=== PATIENT | male | born 1995 | race Hispanic/Latino ===

== ENCOUNTER 2017-01-22 14:10 | Emergency (ER) | payer SELFPAY ==
[2017-01-22 15:04] LABS: #Lymphocytes 1.1 thou/uL (1.20-3.40); #Monocytes 0.4 thou/uL (0.11-0.59); #Neutrophils 7.9 thou/uL (1.40-6.50); %Basophils 0.5 % (0.0-1.0); %Eosinophils 0.1 % (0.0-10.0); %Lymphocytes 11.3 % (28.0-48.0); %Monocytes 3.8 % (0.0-4.0); Hematocrit 46.4 % (42.0-52.0); Mean Platelet Volume 7.9 fL (7.4-10.4); Red Blood Cell (RBC) Count 5.09 mill/uL (4.00-5.20); White Blood Cell (WBC) Count 9.4 thou/uL (4.8-10.8)
--- NOTE | 2017-01-22 15:08 | RAD ---
PORTABLE CHEST: Date: 01/22/17 HISTORY: Chest pain. FINDINGS: Heart size and mediastinum are within normal limits. Lungs are clear of infiltrates. No significant bony findings. IMPRESSION: No active intrathoracic disease. POS: [facility]
[2017-01-22 15:27] LABS: ALT (SGPT) 23 U/L (8-55); AST (SGOT) 17 U/L (10-45); Alkaline Phosphatase 79 U/L (Less than 750); Anion Gap 15 mmol/L (10-20); BUN (Urea Nitrogen) 14 mg/dL (8.4-21.0); Bilirubin, Total 1.3 mg/dL (0.2-1.2); CK (CPK) 89 U/L (30-200); Calc. Creatinine Clearance 0 mL/min (70-130); Calcium 9.8 mg/dL (7.8-10.44); Carbon Dioxide 24 mmol/L (22-29); Chloride 101 mmol/L (98-107); Estimated GFR-MDRD Greater than 90; Globulin 3.4 g/dL (2.4-3.5); Lipase 16 U/L (8-78); Protein, Total 8.3 g/dL (6.0-8.3)
== END 2017-01-22 15:33 | disposition home or self-care (01) ==
LOC: ERS 14:10
DX: E86.0 Dehydration (principal); F41.9 Anxiety disorder, unspecified
CPT/HCPCS: 36415; 71010; 80053; 82550; 83690; 85025; 93005

== ENCOUNTER 2018-05-08 20:45 | Emergency (ER) | payer OTHER, SELFPAY ==
[~2018-05-08 20:45] MED LIST: Iopamidol 370 76% 100 ML VIAL ONE
[2018-05-08 22:21] LABS: #Eosinphils 0.1 thou/uL (0.0-0.7); #Lymphocytes 1.7 thou/uL (1.20-3.40); #Monocytes 0.8 thou/uL (0.11-0.59); #Neutrophils 5.8 thou/uL (1.40-6.50); %Basophils 0.5 % (0.0-1.0); %Eosinophils 0.7 % (0.0-10.0); %Lymphocytes 20.5 % (28.0-48.0); %Monocytes 9.4 % (0.0-4.0); %Neutrophils 68.8 % (31.0-61.0); Hemoglobin 14.8 g/dL (14.0-18.0); Mean Corpuscular HGB CONC 34.6 g/dL (32.0-36.0); Mean Corpuscular Hemoglobin 31.2 pg (25.0-35.0); Mean Corpuscular Volume 90.2 fL (78.0-98.0); Mean Platelet Volume 7.8 fL (7.4-10.4); Platelet Count 189 thou/uL (130-400); RBC Distribution Width 11.6 % (11.5-14.5); Red Blood Cell (RBC) Count 4.75 mill/uL (4.00-5.20); White Blood Cell (WBC) Count 8.4 thou/uL (4.8-10.8)
[2018-05-08 22:35] LABS: Bilirubin Negative (Negative); Blood, Urine Negative (Negative); Clarity CLEAR (Clear); Glucose, Urine (Dipstick) 100 mg/dL (Negative); Leukocyte Negative (Negative); Nitrite Negative (Negative); Protein, Urine (Dipstick) Negative (Neg-Trace); Specific Gravity, Urine 1.008 (1.002-1.036); pH, Urine 6.5 (5.0-9.0)
[2018-05-08 22:43] LABS: Amphetamine Not Detected (NotDetected); Barbiturates Screen Not Detected (NotDetected); Benzodiazepine Screen Not Detected (NotDetected); Cocaine Metabolite Screen Not Detected (NotDetected); Medtox Control Line Valid? VALID (VALID); Medtox Reader # READER 1; Methadone Not Detected (NotDetected); Methamphetamine Not Detected (NotDetected); Opiate Screen Not Detected (NotDetected); Oxycodone Screen Not Detected (NotDetected); Phencyclidine (PCP) Not Detected (NotDetected); THC/Cannabinoid Screen Not Detected (NotDetected); Tricyclic Screen Not Detected (NotDetected)
[2018-05-08 22:44] LABS: ALT (SGPT) 31 U/L (8-55); AST (SGOT) 19 U/L (5-34); Albumin 4.6 g/dL (3.5-5.0); Alkaline Phosphatase 73 U/L (Less than 750); Anion Gap 15 mmol/L (10-20); BUN (Urea Nitrogen) 13 mg/dL (8.9-20.6); Bilirubin, Total 0.4 mg/dL (0.2-1.2); CK (CPK) 92 U/L (30-200); Calc. Creatinine Clearance 0 mL/min (70-130); Calcium 9.3 mg/dL (7.8-10.44); Carbon Dioxide 23 mmol/L (22-29); Chloride 107 mmol/L (98-107); Estimated GFR-MDRD Greater than 90; Globulin 2.9 g/dL (2.4-3.5); Glucose 137 mg/dL (70-105); Lipase 42 U/L (8-78); Potassium 3.5 mmol/L (3.5-5.1); Protein, Total 7.5 g/dL (6.0-8.3); Sodium 141 mmol/L (136-145)
--- NOTE | 2018-05-08 22:51 | RAD ---
CHEST ONE VIEW: History: Shortness of breath, pain on inspiration, dizziness and numbness. Hyperventilation. FINDINGS: Heart size is normal. The lungs are clear. No pneumonia, edema, pleural effusion or other acute proce ss. IMPRESSION: No acute intrathoracic disease. POS: [facility]
[2018-05-08] MEDS ORDERED: Ketorolac Tromethamine 30 MG/ML VIAL ONE (22:56)
[2018-05-08 23:16] LABS: MONO NEGATIVE CONTROL ZONE White (Negative) (White); MONO POSITIVE CONTROL Pink Line (Positive) (PINK/RED); Mononucleosis NEGATIVE (NEGATIVE)
--- NOTE | 2018-05-08 23:48 | CT ---
CT ANGIOGRAM CHEST WITH 3D RENDERING CT ANGIOGRAM ABDOMEN WITH 3D RENDERING: History: Chest pain, abdominal pain, shortness of breath, dizziness, extremity paraesthesia. FINDINGS: CT ANGIOGRAM CHEST WITH 3D RENDERING: No evidence for aortic dissection or aneurysm. No evidence for central artery pulmonary artery thromb osis. No significant acute process in the lungs. No pleural effusion or pericardial effusion. Mediast inum is unremarkable. CT ANGIOGRAM ABDOMEN WITH 3D RENDERING: Normal appearing abdominal aorta. No evidence of dissection or aneurysm. The visualized liver, pancre as, spleen, adrenal glands, and kidneys are unremarkable. Celiac artery, superior mesenteric artery, inferior mesenteric artery and renal arteries appear unremarkable. No abnormal fluid collection withi n the abdomen. IMPRESSION: Normal chest CT angiogram and abdomen CT angiogram. POS: [facility]
[2018-05-08] MEDS ORDERED: Lorazepam 2 MG/ML VIAL ONE (23:56)
== END 2018-05-09 00:58 | disposition home or self-care (01) ==
LOC: ERS 20:45
DX: R07.89 Other chest pain (principal); R00.0 Tachycardia, unspecified; Z87.891 Personal history of nicotine dependence
CPT/HCPCS: 36415; 71045; 71275; 80053; 80306; 81003; 82550; 83690; 83735; 84439; 84484; 85025; 85379; 86308; 87081; 87430; 87804; 93005; 96361; 96374; 96375; J1885; J2060

== ENCOUNTER 2018-12-26 17:54 | Inpatient (IN) | payer SELFPAY ==
[2018-12-26] MEDS ORDERED: Adenosine 6 MG/2 ML VIAL ONE ×2 (18:07→18:17)
[2018-12-26 18:15] LABS: #Basophils 0.1 thou/uL (0.0-0.2); #Lymphocytes 3.2 thou/uL (1.20-3.40); #Monocytes 1.7 thou/uL (0.11-0.59); #Neutrophils 14.4 thou/uL (1.40-6.50); %Basophils 0.3 % (0.0-1.0); %Eosinophils 0.2 % (0.0-10.0); %Lymphocytes 16.4 % (21.0-51.0); %Monocytes 8.6 % (0.0-10.0); %Neutrophils 74.5 % (42.0-75.0); Hemoglobin 15.1 g/dL (14.0-18.0); Mean Corpuscular HGB CONC 34.5 g/dL (32.0-36.0); Mean Corpuscular Hemoglobin 31.4 pg (27.0-31.0); Mean Corpuscular Volume 91.1 fL (78.0-98.0); Mean Platelet Volume 8.5 fL (7.4-10.4); Platelet Count 256 thou/uL (130-400); RBC Distribution Width 11.9 % (11.5-14.5); White Blood Cell (WBC) Count 19.3 thou/uL (4.8-10.8)
[2018-12-26] MEDS ORDERED: Fentanyl 100 MCG/2 ML VIAL ONE (18:20)
[2018-12-26] MEDS ORDERED: Midazolam HCl 2 mg/2 ml Vial ONE (18:20)
[2018-12-26 18:36] LABS: ALT (SGPT) 19 U/L (8-55); AST (SGOT) 19 U/L (5-34); Albumin 4.8 g/dL (3.5-5.0); Alkaline Phosphatase 84 U/L (40-150); Anion Gap 15 mmol/L (10-20); BUN (Urea Nitrogen) 12 mg/dL (8.9-20.6); Bilirubin, Total 0.5 mg/dL (0.2-1.2); CK (CPK) 96 U/L (30-200); Calc. Creatinine Clearance 0 mL/min (70-130); Calcium 9.4 mg/dL (7.8-10.44); Carbon Dioxide 23 mmol/L (22-29); Chloride 100 mmol/L (98-107); Estimated GFR-MDRD Greater than 90; Glucose 252 mg/dL (70-105); Lipase 29 U/L (8-78); Protein, Total 7.8 g/dL (6.0-8.3); Sodium 135 mmol/L (136-145)
[2018-12-26 18:45] LABS: Potassium 2.7 mmol/L (3.5-5.1)
[2018-12-26] MEDS ORDERED: Potassium Chloride 20 MEQ TAB ONE (19:24)
[2018-12-26 19:38] LABS: Amphetamine Not Detected (NotDetected); Barbiturates Screen Not Detected (NotDetected); Benzodiazepine Screen Not Detected (NotDetected); Cocaine Metabolite Screen Not Detected (NotDetected); Medtox Control Line Valid? VALID (VALID); Medtox Reader # READER 1; Methadone Not Detected (NotDetected); Methamphetamine Not Detected (NotDetected); Opiate Screen Not Detected (NotDetected); Oxycodone Screen Not Detected (NotDetected); Phencyclidine (PCP) Not Detected (NotDetected); THC/Cannabinoid Screen Detected (NotDetected); Tricyclic Screen Not Detected (NotDetected)
--- NOTE | 2018-12-26 19:52 | RAD ---
CHEST ONE VIEW PORTABLE: History: Weakness. Comparison: 05-08-18 FINDINGS: Heart size within normal limits. The lungs are clear. No pneumonia, edema, pleural effusion or other acute process. IMPRESSION: No acute intrathoracic disease. POS: [facility]
[2018-12-26 20:05] LABS: Troponin I Less than 0.010 ng/mL (< 0.028)
[2018-12-26] MEDS ORDERED: Magnesium 2 GM/50 ML BAG (IN WATER) ONE (20:22)
[2018-12-26 21:31] LABS: Troponin I 0.014 ng/mL (< 0.028)
[2018-12-26] MEDS ORDERED: Acetaminophen 325 MG TAB PO PRN (23:16)
[2018-12-26] MEDS ORDERED: Ondansetron PF 4 MG/2 ML Vial IVP PRN (23:16)
[2018-12-26] MEDS ORDERED: Acetaminophen 650 MG Suppository PR PRN (23:16)
[2018-12-26] MEDS ORDERED: Ondansetron ODT 4 MG TAB PO PRN (23:16)
[2018-12-26] MEDS ORDERED: Potassium Chloride 20 MEQ TAB PO SCH (23:30)
[2018-12-26 23:56] LABS: Lactic Acid 0.9 mmol/L (0.5-2.2)
[2018-12-27 03:01] LABS: #Lymphocytes 1.6 thou/uL (1.20-3.40); #Neutrophils 5.4 thou/uL (1.40-6.50); %Basophils 0.2 % (0.0-1.0); %Eosinophils 0.2 % (0.0-10.0); %Lymphocytes 19.9 % (21.0-51.0); %Monocytes 12.6 % (0.0-10.0); Hemoglobin 13.6 g/dL (14.0-18.0); Mean Corpuscular HGB CONC 34.1 g/dL (32.0-36.0); Mean Corpuscular Hemoglobin 31.3 pg (27.0-31.0); Mean Corpuscular Volume 91.8 fL (78.0-98.0); Mean Platelet Volume 8.3 fL (7.4-10.4); Platelet Count 168 thou/uL (130-400); RBC Distribution Width 11.8 % (11.5-14.5); Red Blood Cell (RBC) Count 4.35 mill/uL (4.70-6.10); White Blood Cell (WBC) Count 8.1 thou/uL (4.8-10.8)
[2018-12-27 03:10] LABS: Anion Gap 10 mmol/L (10-20); BUN (Urea Nitrogen) 7 mg/dL (8.9-20.6); Calc. Creatinine Clearance 0 mL/min (70-130); Calcium 9.1 mg/dL (7.8-10.44); Carbon Dioxide 22 mmol/L (22-29); Chloride 110 mmol/L (98-107); Estimated GFR-MDRD Greater than 90; Glucose 102 mg/dL (70-105); Potassium 3.6 mmol/L (3.5-5.1); Sodium 138 mmol/L (136-145)
--- NOTE | 2018-12-27 07:25 | HP ---
PRIMARY CARE DOCTOR: The patient has no PCP. CODE STATUS: Full code. TIME OF EVALUATION: 11 p.m. CHIEF COMPLAINT: "My heart is racing, feeling lightheaded." HISTORY OF PRESENT ILLNESS: A 23 years old male patient, with past medical history of palpitations in the past with no clear diagnosis, came to the hospital after having another episode of palpitation where he had these symptoms. He was lightheaded. The onset was 30 minutes prior to arrival to the hospital, was around 5 p.m. with no clear triggers, no alleviating factors. The patient was watching TV. The patient denies any alcohol, no tobacco and drugs. The patient reported that his mom at a young age, supposedly related to kidney problems, he does not recall, he was very little. The symptoms started suddenly and improved after treatment with Cardizem. REVIEW OF SYSTEMS: All other systems were reviewed and negative except for the findings mentioned above. PAST MEDICAL HISTORY: Positive for previous history and episode of palpitations. PAST SURGICAL HISTORY: No surgical history. PSYCHIATRIC HISTORY: No previous psych history. SOCIAL HISTORY: No alcohol, no drugs. The patient abuse marijuana. Former tobacco smoker. Lives at home with family. KNOWN ALLERGIES: No known drug allergies. FAMILY HISTORY: Reviewed and noncontributory to current presentation. REPORTED MEDICATIONS: None. PHYSICAL EXAMINATION: VITAL SIGNS: On presentation, blood pressure is 148/69 with heart rate 166, temperature 97.5, oxygen saturation 97% on room air. GENERAL APPEARANCE: The patient is alert, oriented, no acute distress. HEENT: Eyes, normal conjunctivae. Moist oral mucosa. Anicteric. No JVD. RESPIRATORY: Bilateral air entry. No rales. No wheezes. Symmetric expansion. CARDIOVASCULAR: Normal rate, regular rhythm, no murmurs, no gallop, no edema. ABDOMEN: Soft. Normal bowel sounds. MUSCULOSKELETAL: Baseline range of motion and strength. SKIN: Warm and intact. No pallor, no rash, no redness. Capillary refill seems to be intact. NEURO: No evidence of any new focal weakness. Cranial nerves seems to be intact. PSYCH: The patient is in good mood. No anxiety. Optimal judgment. IMAGING STUDIES: EKG was reviewed. The patient has sinus tachycardia at the rate of 116 with incomplete RBBB. The 2nd EKG on record showed PSVT at the rate of [address] dissection was done. The patient had normal chest CT angiogram and abdomen. Chest x-ray was done and showed no acute intrathoracic disease. LABORATORY DATA: Reviewed. The patient on presentation, white count 19.3, the second one was 8.1; hemoglobin 15. The chemistry was reviewed, the patient's lactic acid was normal. Sodium 135, potassium 2.7, chloride 100, carbon dioxide 23, anion gap 15, BUN 12, creatinine 0.94, GFR greater than 90. Glucose on presentation was 282, the repeat one was 102. TSH 0.3. LFTs were negative. Troponin was negative. ASSESSMENT AND PLAN: The patient will be placed in the hospital with following medical problems. 1. Paroxysmal supraventricular tachycardia, acute episodes, unclear etiology. The patient had recent episodes a couple of months ago with the same presentation. The patient will need Cardiology consult. The patient improved with Cardizem drip. We will continue p.r.n. as needed. By the time of my examination, heart rate has come down to normal. Continue to monitor closely. We will replace electrolytes. We will do an echo in the morning. 2. Deep venous thrombosis prophylaxis. 3. Hypokalemia, potassium 2.7. After replacing, the last one is 3.6. 4. Leukocytosis likely due to acute physical distress. The second white count is 8.1-normal. 5. Hyponatremia, sodium 135, this is minimal. This has corrected by the second labs. 6. Hyperglycemia, likely secondary to acute physical distress. Second blood sugar in the morning was 102. We will monitor. 7. Cannabinoid abuse, more likely related to acute symptoms. He denies any other drug abuse. recommended to stop using marijuana 8. There is a possibility for subclinical hyperthyroidism. The patient has low TSH and normal T3, T4, presenting with arrhythmia. No other significant symptoms. This is something that could be monitored. The patient might have further workup for this reason. Job ID: [id number] [facility]
[2018-12-27] MEDS ORDERED: Enoxaparin Sodium 40 MG/0.4 ML SYRINGE SC SCH (09:00)
[2018-12-27] MEDS ORDERED: Enoxaparin Sodium 40 MG/0.4 ML SYRINGE ONE (10:00)
--- NOTE | 2018-12-27 14:31 | CON ---
DATE OF CONSULTATION: HISTORY OF PRESENT ILLNESS: Santana An is a 23-year-old male , admitted with tachycardia. He states he had one episode approximately 3 years ago where he felt his heart beating very rapidly for approximately 5 minutes and then it spontaneously resolved. He denies any recurrence since that time. He then approximately at 1730 hours yesterday afternoon started feeling his heart beating very rapidly. This occurred while he was sitting and watching TV. He denied any chest discomfort, but did feel extreme palpitations and felt weak and dizzy. When he arrived here , his blood pressure was 163/75, pulse of 163/minute. In the emergency room, he underwent emergency cardioversion, which did not convert him. He was given fentanyl and Versed, and again, cardioversion was unsuccessful. He was then given intravenous adenosine, and apparently, blocked down and converted to sinus rhythm. In looking at the rhythm strips, there is one rhythm strip where he appears to block down and there are P-waves and certainly maybe sinus tachycardia. At the present time, the patient denies any symptoms. PAST MEDICAL HISTORY: No history of hypertension, diabetes, or hypercholesterolemia. MEDICATIONS: None. ALLERGIES: NONE. PAST SURGICAL HISTORY: None. SOCIAL HISTORY: He smoked in the past, where he states stopped smoking marijuana 1 month ago, but his urine screen is positive. He does not drink. FAMILY HISTORY: Negative for coronary artery disease. REVIEW OF SYSTEMS: Twelve-point review of systems unremarkable. PHYSICAL EXAMINATION: VITAL SIGNS: Blood pressure of 114/56, pulse of 98. HEENT: PERRL. NECK: Supple. CHEST: Clear. CARDIAC: S1 and S2 normal without any S3, S4, or murmurs. ABDOMEN: Normal bowel sounds without tenderness or organomegaly. EXTREMITIES: Revealed no clubbing, cyanosis, or edema. NEUROLOGIC: Grossly intact. SKIN: Warm and dry. IMAGING STUDIES: EKG reveals sinus tachycardia versus supraventricular tachycardia with incomplete right bundle-branch block. LABORATORY DATA: Hemoglobin 13.6, hematocrit 39.9, white count 8100. Sodium 138, potassium 3.6, chloride 110, carbon dioxide 22, BUN 7, creatinine 0.66. Troponin I is unremarkable. Magnesium is normal. Potassium initially was 2.7. TSH somewhat low at 0.2258; however, free T4 is normal. Drug screen was unremarkable, except for cannabinoids. IMPRESSION: 1. Supraventricular tachycardia versus sinus tachycardia. With adenosine, there was atrioventricular block with P-waves present at approximately 140 to 150. The P- wave morphology seems similar to P-wave morphology when he is in normal sinus rhythm. 2. Cannabinoid use. PLAN: Echocardiogram will be performed. Electrophysiology consultation will be requested. We will follow the patient with you. Job ID: [id number] [facility]
--- NOTE | 2018-12-27 17:43 | CON ---
DATE OF CONSULTATION: 12/27/2018 HISTORY OF PRESENT ILLNESS: I am seeing Mr. 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 His problems are: 1. Rapid palpitations. a. EKG suggestive of 1:1 sinus, less likely atrial tachycardia with P-wave morphology similar to baseline sinus. b. Adenosine produces AV block, but does not terminate the arrhythmia. Cardioversion unsuccessful. c. Good response to IV diltiazem. 2. Depressed TSH and elevated white cell count on admission. 3. History of marijuana use. ALLERGIES: NONE NOTED. MEDICATIONS: Medications at home: None. SUBJECTIVE: Mr. An has been experiencing palpitations since last night. He was having some anxiety, lightheadedness about 30 minutes prior to arriving to hospital about 5 p.m. There are no obvious triggers or alleviating factors. This happened while he was watching TV, but he did notice some anxiety coming on him. The anxiety was though unprovoked. He has no PND, orthopnea, or lower extremity edema. No angina-like discomfort. No stroke-like symptoms. Denies fever, chills, cough, or burning urination. No dizziness or loss of consciousness. Has not used any recent drugs, although has quit marijuana smoking about a month ago. REVIEW OF SYSTEMS: Rest of 12-point review of systems is otherwise unremarkable. PAST MEDICAL HISTORY: As above. SOCIAL HISTORY: The patient denies smoking, EtOH, or drug abuse. FAMILY HISTORY: Not contributory. OBJECTIVE DATA: VITAL SIGNS: Initially, blood pressure is 142/65, heart rate 148, respirations 12. The patient is afebrile. PHYSICAL EXAMINATION: GENERAL: Alert and oriented man, in no apparent distress. NECK: Supple. Jugular veins not distended. CHEST: Coarse without crackles. HEART: Sounds are regular to rate and rhythm. No murmur or gallop. ABDOMEN: Benign. Bowel sounds are positive. EXTREMITIES: Lower extremities without edema, clubbing, or cyanosis. Pulses are adequate. NEUROLOGIC: The patient is nonfocal. MUSCULOSKELETAL: Without joint swelling or deformity. SKIN: Without rash. DATABASE: The EKG is reviewed. Initial EKG reveals a long RP, short NM type of narrow complex tachycardia with P-wave morphology consistent with the sinus P waves on the later EKGs. The documented adenosine administration causes complete AV block with P waves continue undisturbed and later a 2:1 AV conduction ensued, but 1:1 conduction also resumed. Eventually, IV diltiazem has controlled the patient's tachycardia. LABORATORY DATA: White cell count last night 19.3, this morning 8.1; hemoglobin 15.1; platelet count is 256. Sodium 138, potassium 3.6, BUN is 7, creatinine 0.66. AST and ALT are normal. Troponins are 0.014 and 0.01. TSH is abnormal at 0.2258 with free T4 at normal range of 1.05. The chest x-ray shows no acute intrathoracic disease. This morning, EKG reveals sinus rhythm, rate of 88 beats per minute. ASSESSMENT AND PLAN: Mr. An is a pleasant 23-year-old young man with prior history of palpitation, some anxiety, who has presented with rapid narrow complex tachycardia with P waves consistent with sinus origin. Also, cardioversion and adenosine did not convert him out of this rhythm, although transient atrioventricular block was achieved with adenosine. Eventually, IV diltiazem has slowed down his heart rates, that was stopped overnight, and he remains in normal rhythm today. Workup so far is not clearly revealing, although initial white cell count elevation is seen. There are no obvious signs or symptoms of infection present. As white cell count normalized, sepsis would be rather unlikely at this time. He has mildly reduced TSH, but normal free T4. I doubt significant hypothyroidism. Moderate hypokalemia is seen initially at 2.7, but normalized this morning. My diagnosis is sinus tachycardia at this point, unclear reason. Most likely anxiety-induced, would be less likely a focal atrial tachycardia very close to the sinus node giving P waves very similar in morphology. He seems to be responding well to diltiazem. We might be able to discharge him on p.o. short-acting diltiazem 60 mg 3 times a day, which could be reduced and possibly taking on an as-needed basis. Should the palpitations recur, outpatient monitoring might be a consideration. EP study and ablation would be likely held off at this point unless if more doubt of focal atrial tachycardia is present. Normalize electrolytes; if necessary, thyroid levels as well is advised. I am happy to see this gentleman back as an outpatient. Thank you again for allowing me to participate in the care of this patient. Job ID: [id number] [facility]
--- NOTE | 2018-12-28 08:43 | DIS ---
DATE OF ADMISSION: 12/26/2018 DATE OF DISCHARGE: 12/27/2018 ADMISSION DIAGNOSES: 1. Supraventricular tachycardia. 2. Marijuana abuse. DISCHARGE DIAGNOSES: 1. Supraventricular tachycardia. 2. Marijuana abuse. HISTORY OF PRESENTING ILLNESS: This is a 23-year-old male who came in with a history of rapid heart rate with palpitations and chest discomfort. The patient was found to be in SVT and was treated with IV diltiazem. The patient's toxicology screen showed he was positive for marijuana. The patient responded to IV diltiazem, and manager primary who saw the patient, instructed to keep the patient on p.o. Cardizem on a p.r.n. basis for the heart rate of more than 100. The patient was then discharged with a prescription for Cardizem to be taken at p.r.n. for heart rate of more than 100. The patient also was instructed to stop using marijuana. The patient was also requested to follow up with the nuclear physician and also his primary care physician. PHYSICAL EXAMINATION: CARDIOVASCULAR SYSTEM: Regular rate and rhythm. DISCHARGE INSTRUCTIONS: 1. Please follow up with the primary care physician. 2. Please follow up with the nuclear physician. 3. Stop marijuana. Job ID: [id number]
--- NOTE | 2018-12-28 17:07 | EKG ---
Test Reason : Blood Pressure : / mmHG Vent. Rate : 088 BPM Atrial Rate : 088 BPM P-R Int : 142 ms QRS Dur : 094 ms QT Int : 348 ms P-R-T Axes : 077 082 067 degrees QTc Int : 421 ms Normal sinus rhythm Incomplete right bundle branch block Abnormal ECG Confirmed by NICOLETTE CRUZ ([id number]) on 12/28/2018 5:07:12 PM Referred By: RED Confirmed By:NICOLETTE CRUZ
[2018-12-30] MEDS ORDERED: Lorazepam 2 MG/ML VIAL ONE (18:01)
--- NOTE | 2018-12-31 23:01 | EKG ---
Test Reason : Blood Pressure : / mmHG Vent. Rate : 159 BPM Atrial Rate : 163 BPM P-R Int : 000 ms QRS Dur : 094 ms QT Int : 314 ms P-R-T Axes : 000 090 078 degrees QTc Int : 510 ms Sinus tachycardia vs SVT w/ retrograde p-wave Rate related ischemia changes Rightward axis Nonspecific ST abnormality Abnormal ECG Confirmed by LIZ PHELPS M.D. ([id number]), mapping editor KRISSY EARL ([id number] on 12/31/2018 11:01:04 PM Referred By: Confirmed By:LIZ PHELPS M.D.
== END 2018-12-27 13:06 | disposition home or self-care (01) | DRG 309 ==
LOC: ERS 17:54 → ERHOLD 19:05
PROVIDERS: ADMIT Family Medicine; ATTEND Family Medicine
PROC: 5A2204Z Restoration of Cardiac Rhythm, Single (ICD-10-PCS; principal; 2018-12-26)
DX: I47.1 Supraventricular tachycardia (principal); E87.1 Hypo-osmolality and hyponatremia; F12.10 Cannabis abuse, uncomplicated; Z87.891 Personal history of nicotine dependence; E87.6 Hypokalemia; D72.829 Elevated white blood cell count, unspecified; R73.9 Hyperglycemia, unspecified; F41.9 Anxiety disorder, unspecified
CPT/HCPCS: 36415; 71045; 80048; 80053; 80306; 82550; 83605; 83690; 83735; 84439; 84443; 84484; 85025; 87040; 93005; 93010; 94760; J0153; J1650; J2060; J2250; J3010; J3475; J3490

== ENCOUNTER 2018-12-30 16:05 | Emergency (ER) | payer SELFPAY ==
[2018-12-30 16:41] LABS: Bilirubin Negative (Negative); Blood, Urine Negative (Negative); Clarity Clear (Clear); Glucose, Urine (Dipstick) Normal (Negative); Leukocyte Negative Leu/uL (Negative); Nitrite Negative (Negative); Protein, Urine (Dipstick) Negative (Neg-Trace); Urobilinogen Normal mg/dL (Less than 2)
== END 2018-12-30 18:58 | disposition home or self-care (01) ==
LOC: ERS 16:05
DX: F41.9 Anxiety disorder, unspecified (principal); Z87.891 Personal history of nicotine dependence
CPT/HCPCS: 81003; 93005; 96372

== ENCOUNTER 2019-01-06 20:26 | Emergency (ER) | payer SELFPAY ==
[2019-01-06] MEDS ORDERED: hydrOXYzine 25 MG TAB ONE (22:19)
== END 2019-01-06 22:31 | disposition home or self-care (01) ==
LOC: ERS 20:26
DX: F41.0 Panic disorder [episodic paroxysmal anxiety] (principal); Z87.891 Personal history of nicotine dependence
CPT/HCPCS: 99283

== ENCOUNTER 2019-01-18 20:41 | Emergency (ER) | payer SELFPAY | END 2019-01-18 21:42 | disposition left against medical advice (07) | LOC: ERS 20:41 | DX: Z53.21 Procedure and treatment not carried out due to patient leaving prior to being seen by health care provider (principal) ==

== ENCOUNTER 2019-01-20 15:30 | Emergency (ER) | payer SELFPAY ==
[2019-01-20 16:35] LABS: #Eosinphils 0.1 thou/uL (0.0-0.7); #Lymphocytes 1.7 thou/uL (1.20-3.40); #Monocytes 0.4 thou/uL (0.11-0.59); #Neutrophils 4.3 thou/uL (1.40-6.50); %Basophils 0.4 % (0.0-1.0); %Lymphocytes 25.9 % (21.0-51.0); %Monocytes 6.5 % (0.0-10.0); %Neutrophils 66.3 % (42.0-75.0); Hemoglobin 16.2 g/dL (14.0-18.0); Mean Corpuscular HGB CONC 33.9 g/dL (32.0-36.0); Mean Corpuscular Hemoglobin 30.2 pg (27.0-31.0); Mean Corpuscular Volume 89.2 fL (78.0-98.0); Mean Platelet Volume 8.3 fL (7.4-10.4); Platelet Count 190 thou/uL (130-400); RBC Distribution Width 11.7 % (11.5-14.5); Red Blood Cell (RBC) Count 5.36 mill/uL (4.70-6.10); White Blood Cell (WBC) Count 6.4 thou/uL (4.8-10.8)
[2019-01-20 16:54] LABS: ALT (SGPT) 25 U/L (8-55); AST (SGOT) 19 U/L (5-34); Alkaline Phosphatase 76 U/L (40-110); Anion Gap 13 mmol/L (10-20); BUN (Urea Nitrogen) 11 mg/dL (8.9-20.6); Bilirubin, Total 0.8 mg/dL (0.2-1.2); Calc. Creatinine Clearance 0 mL/min (70-130); Calcium 9.8 mg/dL (7.8-10.44); Carbon Dioxide 28 mmol/L (22-29); Chloride 102 mmol/L (98-107); Estimated GFR-MDRD Greater than 90; Glucose 110 mg/dL (70-105); Potassium 3.9 mmol/L (3.5-5.1); Sodium 139 mmol/L (136-145)
== END 2019-01-20 17:30 | disposition home or self-care (01) ==
LOC: ERS 15:30
DX: I95.1 Orthostatic hypotension (principal); F41.9 Anxiety disorder, unspecified
CPT/HCPCS: 36415; 80053; 85025; 93005

== ENCOUNTER 2019-01-21 19:17 | Emergency (ER) | payer SELFPAY ==
[2019-01-21 19:45] LABS: #Eosinphils 0.1 thou/uL (0.0-0.7); #Lymphocytes 1.7 thou/uL (1.20-3.40); #Monocytes 0.4 thou/uL (0.11-0.59); #Neutrophils 4.3 thou/uL (1.40-6.50); %Basophils 0.4 % (0.0-1.0); %Lymphocytes 26.3 % (21.0-51.0); %Monocytes 6.4 % (0.0-10.0); %Neutrophils 65.9 % (42.0-75.0); Hemoglobin 15.5 g/dL (14.0-18.0); Mean Corpuscular HGB CONC 35.1 g/dL (32.0-36.0); Mean Corpuscular Volume 88.3 fL (78.0-98.0); Mean Platelet Volume 8.3 fL (7.4-10.4); Platelet Count 182 thou/uL (130-400); RBC Distribution Width 11.7 % (11.5-14.5); Red Blood Cell (RBC) Count 4.99 mill/uL (4.70-6.10); White Blood Cell (WBC) Count 6.5 thou/uL (4.8-10.8)
[2019-01-21 20:06] LABS: Anion Gap 13 mmol/L (10-20); BUN (Urea Nitrogen) 13 mg/dL (8.9-20.6); Calc. Creatinine Clearance 0 mL/min (70-130); Calcium 9.4 mg/dL (7.8-10.44); Carbon Dioxide 25 mmol/L (22-29); Chloride 103 mmol/L (98-107); Estimated GFR-MDRD Greater than 90; Glucose 111 mg/dL (70-105); Potassium 3.6 mmol/L (3.5-5.1); Sodium 137 mmol/L (136-145)
[2019-01-21 21:06] LABS: Bilirubin Negative (Negative); Blood, Urine Negative (Negative); Clarity Clear (Clear); Glucose, Urine (Dipstick) Normal (Negative); Leukocyte Negative Leu/uL (Negative); Nitrite Negative (Negative); Protein, Urine (Dipstick) Negative (Neg-Trace); Urobilinogen Normal mg/dL (Less than 2)
== END 2019-01-21 22:00 | disposition home or self-care (01) ==
LOC: ERS 19:17
DX: F41.9 Anxiety disorder, unspecified (principal); F32.9 Major depressive disorder, single episode, unspecified; R55 Syncope and collapse
CPT/HCPCS: 36415; 80048; 81003; 84484; 85025; 93005; 96360

== ENCOUNTER 2019-02-02 16:00 | Emergency (ER) | payer SELFPAY ==
[2019-02-02 17:07] LABS: #Lymphocytes 1.3 thou/uL (1.20-3.40); #Monocytes 0.6 thou/uL (0.11-0.59); #Neutrophils 5.9 thou/uL (1.40-6.50); %Basophils 0.6 % (0.0-1.0); %Eosinophils 0.3 % (0.0-10.0); %Lymphocytes 16.2 % (21.0-51.0); %Monocytes 7.8 % (0.0-10.0); %Neutrophils 75.1 % (42.0-75.0); Hemoglobin 15.9 g/dL (14.0-18.0); Mean Corpuscular HGB CONC 34.5 g/dL (32.0-36.0); Mean Corpuscular Hemoglobin 31.1 pg (27.0-31.0); Mean Corpuscular Volume 90.2 fL (78.0-98.0); Mean Platelet Volume 8.2 fL (7.4-10.4); Platelet Count 211 thou/uL (130-400); RBC Distribution Width 11.7 % (11.5-14.5); Red Blood Cell (RBC) Count 5.11 mill/uL (4.70-6.10); White Blood Cell (WBC) Count 7.8 thou/uL (4.8-10.8)
--- NOTE | 2019-02-02 17:13 | RAD ---
EXAM: CHEST ONE VIEW HISTORY: Chest pain COMPARISON: 12/26/2018 FINDINGS: The cardiac silhouette and pulmonary vasculature is within normal limits. The lungs are clear. The os seous structures are intact. Pacing pads overlie the chest on the prior study are no longer visualized. IMPRESSION: No acute cardiopulmonary process.
[2019-02-02 17:28] LABS: ALT (SGPT) 36 U/L (8-55); AST (SGOT) 20 U/L (5-34); Alkaline Phosphatase 81 U/L (40-110); Anion Gap 12 mmol/L (10-20); BUN (Urea Nitrogen) 13 mg/dL (8.9-20.6); Bilirubin, Total 0.7 mg/dL (0.2-1.2); CK (CPK) 73 U/L (30-200); Calc. Creatinine Clearance 0 mL/min (70-130); Calcium 9.6 mg/dL (7.8-10.44); Carbon Dioxide 27 mmol/L (22-29); Chloride 101 mmol/L (98-107); Estimated GFR-MDRD Greater than 90; Globulin 3.2 g/dL (2.4-3.5); Glucose 105 mg/dL (70-105); Potassium 3.8 mmol/L (3.5-5.1); Protein, Total 8.2 g/dL (6.0-8.3); Sodium 136 mmol/L (136-145)
== END 2019-02-02 18:43 | disposition home or self-care (01) ==
LOC: ERS 16:00
DX: K21.9 Gastro-esophageal reflux disease without esophagitis (principal); F41.9 Anxiety disorder, unspecified; Z79.899 Other long term (current) drug therapy
CPT/HCPCS: 36415; 71045; 80053; 82550; 84484; 85025

== ENCOUNTER 2019-05-09 16:12 | Emergency (ER) | payer SELFPAY | END 2019-05-09 18:16 | disposition left against medical advice (07) | LOC: ERS 16:12 | DX: Z53.21 Procedure and treatment not carried out due to patient leaving prior to being seen by health care provider (principal) ==

== ENCOUNTER 2019-05-21 15:57 | Emergency (ER) | payer SELFPAY ==
[2019-05-21 16:25] LABS: #Eosinphils 0.1 thou/uL (0.0-0.7); #Lymphocytes 2.4 thou/uL (1.20-3.40); #Monocytes 0.8 thou/uL (0.11-0.59); #Neutrophils 5.5 thou/uL (1.40-6.50); %Basophils 0.4 % (0.0-1.0); %Eosinophils 1.1 % (0.0-10.0); %Lymphocytes 27.6 % (21.0-51.0); %Monocytes 9.1 % (0.0-10.0); %Neutrophils 61.8 % (42.0-75.0); Hemoglobin 15.2 g/dL (14.0-18.0); Mean Corpuscular HGB CONC 34.1 g/dL (32.0-36.0); Mean Corpuscular Hemoglobin 30.7 pg (27.0-31.0); Mean Corpuscular Volume 90.3 fL (78.0-98.0); Mean Platelet Volume 8.2 fL (7.4-10.4); Platelet Count 190 thou/uL (130-400); RBC Distribution Width 11.4 % (11.5-14.5); Red Blood Cell (RBC) Count 4.93 mill/uL (4.70-6.10); White Blood Cell (WBC) Count 8.8 thou/uL (4.8-10.8)
[2019-05-21 16:46] LABS: Bilirubin Negative (Negative); Blood, Urine Negative (Negative); Clarity Clear (Clear); Glucose, Urine (Dipstick) Normal (Negative); Leukocyte Negative Leu/uL (Negative); Nitrite Negative (Negative); Protein, Urine (Dipstick) Negative (Neg-Trace); Urobilinogen Normal mg/dL (Less than 2)
[2019-05-21 16:52] LABS: ALT (SGPT) 24 U/L (8-55); AST (SGOT) 19 U/L (5-34); Albumin 4.9 g/dL (3.5-5.0); Alkaline Phosphatase 74 U/L (40-110); Anion Gap 11 mmol/L (10-20); BUN (Urea Nitrogen) 13 mg/dL (8.9-20.6); Bilirubin, Total 0.6 mg/dL (0.2-1.2); Calc. Creatinine Clearance 0 mL/min (70-130); Calcium 9.3 mg/dL (7.8-10.44); Carbon Dioxide 27 mmol/L (22-29); Chloride 101 mmol/L (98-107); Estimated GFR-MDRD Greater than 90; Glucose 112 mg/dL (70-105); Lipase 38 U/L (8-78); Potassium 3.5 mmol/L (3.5-5.1); Protein, Total 7.9 g/dL (6.0-8.3); Sodium 135 mmol/L (136-145)
[2019-05-21] MEDS ORDERED: Lorazepam 2 MG/ML VIAL ONE (17:23)
== END 2019-05-21 18:50 | disposition home or self-care (01) ==
LOC: ERS 15:57
DX: F41.1 Generalized anxiety disorder (principal)
CPT/HCPCS: 36415; 80053; 81003; 83690; 85025; 96372; 99284; J2060

== ENCOUNTER 2019-05-22 17:28 | Emergency (ER) | payer SELFPAY ==
[2019-05-22] MEDS ORDERED: Diazepam 5 MG TAB ONE (18:13)
[2019-05-22 18:26] LABS: #Lymphocytes 1.4 thou/uL (1.20-3.40); #Monocytes 0.4 thou/uL (0.11-0.59); #Neutrophils 6.5 thou/uL (1.40-6.50); %Basophils 0.5 % (0.0-1.0); %Eosinophils 0.2 % (0.0-10.0); %Lymphocytes 16.4 % (21.0-51.0); %Monocytes 4.8 % (0.0-10.0); %Neutrophils 78.1 % (42.0-75.0); Hemoglobin 15.7 g/dL (14.0-18.0); Mean Corpuscular HGB CONC 33.9 g/dL (32.0-36.0); Mean Corpuscular Hemoglobin 30.4 pg (27.0-31.0); Mean Corpuscular Volume 89.6 fL (78.0-98.0); Mean Platelet Volume 8.4 fL (7.4-10.4); Platelet Count 200 thou/uL (130-400); RBC Distribution Width 11.2 % (11.5-14.5); Red Blood Cell (RBC) Count 5.16 mill/uL (4.70-6.10); White Blood Cell (WBC) Count 8.3 thou/uL (4.8-10.8)
[2019-05-22 18:49] LABS: ALT (SGPT) 26 U/L (8-55); AST (SGOT) 26 U/L (5-34); Acetaminophen Less than 6.0 mcg/mL (10.0-30.0); Albumin 5.3 g/dL (3.5-5.0); Alcohol Less than 10 mg/dL (Less than 10); Alkaline Phosphatase 82 U/L (40-110); Anion Gap 10 mmol/L (10-20); BUN (Urea Nitrogen) 10 mg/dL (8.9-20.6); Bilirubin, Total 0.8 mg/dL (0.2-1.2); Calc. Creatinine Clearance 0 mL/min (70-130); Calcium 9.9 mg/dL (7.8-10.44); Carbon Dioxide 27 mmol/L (22-29); Chloride 101 mmol/L (98-107); Estimated GFR-MDRD Greater than 90; Globulin 3.2 g/dL (2.4-3.5); Glucose 228 mg/dL (70-105); Potassium 3.6 mmol/L (3.5-5.1); Protein, Total 8.5 g/dL (6.0-8.3); Salicylate Less than 8.0 mg/dL (15.0-30.0); Sodium 134 mmol/L (136-145)
[2019-05-22 18:53] LABS: Bilirubin Negative (Negative); Blood, Urine Negative (Negative); Clarity Clear (Clear); Glucose, Urine (Dipstick) 300 mg/dL (Negative); Leukocyte Negative Leu/uL (Negative); Nitrite Negative (Negative); Protein, Urine (Dipstick) Negative (Neg-Trace); Urobilinogen Normal mg/dL (Less than 2)
[2019-05-22 19:06] LABS: Amphetamine Not Detected (NotDetected); Barbiturates Screen Not Detected (NotDetected); Benzodiazepine Screen Detected (NotDetected); Cocaine Metabolite Screen Not Detected (NotDetected); Medtox Control Line Valid? VALID (VALID); Medtox Reader # READER 1; Methadone Not Detected (NotDetected); Methamphetamine Not Detected (NotDetected); Opiate Screen Not Detected (NotDetected); Oxycodone Screen Not Detected (NotDetected); Phencyclidine (PCP) Not Detected (NotDetected); THC/Cannabinoid Screen Not Detected (NotDetected); Tricyclic Screen Not Detected (NotDetected)
[2019-05-22 19:07] LABS: Free T4 (Free Thyroxine) 1.07 ng/dL (0.70-1.48); Thyroid Stimulating Hormone 0.525 uIU/mL (0.35-4.94)
== END 2019-05-22 20:35 | disposition home or self-care (01) ==
LOC: ERS 17:28
DX: F43.0 Acute stress reaction (principal); F22 Delusional disorders; F32.9 Major depressive disorder, single episode, unspecified; F41.9 Anxiety disorder, unspecified
CPT/HCPCS: 36415; 80053; 80306; 80307; 81003; 84439; 84443; 85025; 93005